=== PATIENT | male | born 1985 | race Caucasian/White ===

== ENCOUNTER 2017-03-13 18:23 | Emergency (ER) | payer BC ==
[~2017-03-13] VITALS: Ht 165.1 cm; Wt 73.3 kg
[2017-03-13 18:29] VITALS: BP 130/83
--- NOTE | 2017-03-13 18:55 | NUR ---
ABULATED TO ER BED 6
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
--- NOTE | 2017-03-13 19:18 | NUR ---
PATIENT BEING EVALUATED BY DR. ESCOBAR.
[2017-03-13 19:36] VITALS: BP 127/79
--- NOTE | 2017-03-13 19:36 | NUR ---
Patient discharged with v/s stable. Written and verbal after care instructions given and explained. Patient verbalized understanding. Ambulatory with steady gait. All questions addressed prior to discharge. Advised to follow up with PMD.
== END 2017-03-13 19:36 | disposition home or self-care (01) ==
LOC: MED 18:23
DX: S01.312A Laceration without foreign body of left ear, initial encounter (principal); R03.0 Elevated blood-pressure reading, without diagnosis of hypertension; Y04.2XXA Assault by strike against or bumped into by another person, initial encounter; Y93.89 Activity, other specified; Y92.89 Other specified places as the place of occurrence of the external cause; Y99.8 Other external cause status
CPT/HCPCS: 99283